=== PATIENT | male | born 1955 | race Caucasian/White ===

== ENCOUNTER 2017-03-13 10:41 | Emergency (ER) | payer SELFPAY ==
[~2017-03-13] VITALS: Ht 175.3 cm; Wt 171.0 kg
[~2017-03-13 10:41] MED LIST: ATOR40TA16 PO; GLIP10TA6 PO; LISI10TA3 PO; METF1000 PO; NOVO7030P2 SQ; syringes for insulin SQ
[2017-03-13 10:54] VITALS: BP 140/88; PULSE 96; RESP 16; TEMP 98; O2SAT 95
[2017-03-13] MEDS ORDERED: PIPERACIL-TAZO 4.5 GM PREMIX 100 ML IV STA (11:08)
[2017-03-13] MEDS ORDERED: VANCOMYCIN INJ 2,000 MG in SODIUM CHLORID 0.9% 500 ML INJ 500 ML IV STA (11:08)
[2017-03-13] MEDS ORDERED: SODIUM CHLOR 0.9% 1000 ML INJ 1,000 ML IV ONE (11:15)
--- NOTE | 2017-03-13 11:15 | PD ---
HPI Chief Complaint: Skin Problem Time Seen by Provider: 11:01 Travel History International Travel<30 days: No Contact w/Intl Traveler<30days: No Traveled to known affect area: No History of Present Illness HPI This 61-year-old male presents with complaint of infection on his left heel. He has a history of diabetes. He noted yesterday that he had drainage from his heel. He has neuropathy and does not have any sensation in this area. He is not aware of fever or chills. He says his sugar has been well controlled. PFSH Past Medical History Hx Anticoagulant Therapy: Yes (325 ASA DAILY) Arthritis: No Asthma: No Heart Rhythm Problems: No Cancer: No Cardiovascular Problems: Yes (HTN) Chemotherapy: No Chest Pain: No Congestive Heart Failure: No COPD: No Cerebrovascular Accident: No Diabetes: Yes Diminished Hearing: No Endocrine: Yes Gastrointestinal Disorders: Yes (morbid obesity AND PATIENT STATES HAS ACID REFLEX) GERD: Yes Genitourinary: Yes Headaches: No Hepatitis: No Hiatal Hernia: No Hypertension: Yes Immune Disorder: No Kidney Stones: Yes Musculoskeletal: No Neurologic: No Psychiatric: No Reproductive: No Respiratory: No Migraines: No Myocardial Infarction: No Renal Failure: No Seizures: No Ulcer: No Past Surgical History Abdominal Surgery: No Appendectomy: No Cardiac Surgery: No Cholecystectomy: No Ear Surgery: No Endocrine Surgery: No Eye Surgery: No Genitourinary Surgery: No Gynecologic Surgery: No Hysterectomy: No Oral Surgery: No Thoracic Surgery: No Other Surgery: Yes (CYST REMOVED FROM BACK) Social History Alcohol Use: Yes ("A FEW BEERS PER WEEK") Tobacco Use: No Substance Use: No Allergies-Medications (Allergen,Severity, Reaction): Coded Allergies: No Known Allergies (Verified Allergy, Unknown, 03/13/17) Reported Meds & Prescriptions Reported Meds & Active Scripts Active Glipizide 10 Mg Tab 20 Mg PO BIDAC Take 30 minutes before a meal Metformin (Metformin HCl) 1,000 Mg Tab 1,000 Mg PO BIDPC With meals [syringes for insulin] 1 Syringe SQ BID Reported Novolog Inj (Insulin Aspart) 1,000 Unit/10 Ml Vial 0 SQ DIRECTED Sliding Scale as directed. Review of Systems General / Constitutional: No: Fever, Chills Eyes: No: Diploplia, Blurred Vision HENT: No: Headaches, Vertigo Cardiovascular: No: Chest Pain or Discomfort, Palpitations Respiratory: No: Cough, Shortness of Breath Gastrointestinal: No: Nausea, Vomiting Genitourinary: No: Urgency, Frequency Musculoskeletal: No: Myalgias, Arthralgias Skin: Positive Rash Neurologic: No: Weakness, Dizziness Psychiatric: No: Anxiety Hematologic/Lymphatic: No: Easy Bruising Physical Exam Narrative GENERAL well-developed male SKIN: Focused skin assessment warm/dry. HEAD: Atraumatic. Normocephalic. EYES: Pupils equal and round. No scleral icterus. No injection or drainage. ENT: No nasal bleeding or discharge. Mucous membranes pink and moist. NECK: Trachea midline. No JVD. CARDIOVASCULAR: Regular rate and rhythm. No murmur appreciated. RESPIRATORY: No accessory muscle use. Clear to auscultation. Breath sounds equal bilaterally. GASTROINTESTINAL: Abdomen soft, non-tender, nondistended. Hepatic and splenic margins not palpable. MUSCULOSKELETAL: No obvious deformities. No clubbing. No cyanosis. No edema. Examination left heel shows that there is skin breakdown over the heel with some purulent drainage. No obvious fluctuance NEUROLOGICAL: Awake and alert. No obvious cranial nerve deficits. Motor grossly within normal limits. Normal speech. PSYCHIATRIC: Appropriate mood and affect; insight and judgment normal. Data Data Last Documented VS Vital Signs Date Time Temp Pulse Resp B/P (MAP) Pulse Ox O2 Delivery O2 Flow Rate FiO2 03/13/17 13:15 76 18 152/76 (101) 96 Room Air 03/13/17 10:54 98.0 Orders Orders Complete Blood Count With Diff (03/13/17 11:08) Comprehensive Metabolic Panel (03/13/17 11:08) Lactic Acid Sepsis Protocol (03/13/17 11:08) Urinalysis - C+S If Indicated (03/13/17 11:08) Blood Culture (03/13/17 11:08) Wound Culture And Gram Stain (03/13/17 11:08) Iv Access Insert/Monitor (03/13/17 11:08) Piperacil-Tazo 4.5 Gm Premix (Zosyn 4.5 (03/13/17 11:08) Vancomycin Inj (Vancomycin Inj) (03/13/17 11:08) Sodium Chlor 0.9% 1000 Ml Inj (Ns 1000 M (03/13/17 11:15) Foot, Heel Only (Aug6rxy) (03/13/17 11:08) Labs Laboratory Tests Test 03/13/17 11:20 White Blood Count 6.6 TH/MM3 Red Blood Count 4.78 MIL/MM3 Hemoglobin 13.4 GM/DL Hematocrit 41.4 % Mean Corpuscular Volume 86.6 FL Mean Corpuscular Hemoglobin 28.0 PG Mean Corpuscular Hemoglobin Concent 32.3 % Red Cell Distribution Width 13.3 % Platelet Count 224 TH/MM3 Mean Platelet Volume 7.6 FL Neutrophils (%) (Auto) 58.6 % Lymphocytes (%) (Auto) 29.2 % Monocytes (%) (Auto) 6.4 % Eosinophils (%) (Auto) 5.4 % Basophils (%) (Auto) 0.4 % Neutrophils # (Auto) 3.9 TH/MM3 Lymphocytes # (Auto) 1.9 TH/MM3 Monocytes # (Auto) 0.4 TH/MM3 Eosinophils # (Auto) 0.4 TH/MM3 Basophils # (Auto) 0.0 TH/MM3 CBC Comment DIFF FINAL Differential Comment Blood Urea Nitrogen 8 MG/DL Creatinine 0.60 MG/DL Random Glucose 230 MG/DL Total Protein 7.6 GM/DL Albumin 3.0 GM/DL Calcium Level 8.6 MG/DL Alkaline Phosphatase 84 U/L Aspartate Amino Transf (AST/SGOT) 10 U/L Alanine Aminotransferase (ALT/SGPT) 23 U/L Total Bilirubin 0.4 MG/DL Sodium Level 142 MEQ/L Potassium Level 3.8 MEQ/L Chloride Level 101 MEQ/L Carbon Dioxide Level 27.8 MEQ/L Anion Gap 7 MEQ/L Estimat Glomerular Filtration Rate 138 ML/MIN Lactic Acid Level 1.1 mmol/L [facility] Medical Decision Making Medical Screen Exam Complete: Yes Emergency Medical Condition: Yes Medical Record Reviewed: Yes Differential Diagnosis Differential includes cellulitis, skin infection, diabetes Narrative Course White count is normal. Lactate is normal. Patient has an infection of the heel. He has expressed a desire to go home. He has been given an initial dose of antibiotics. I will prescribe Bactrim and clindamycin to use. I recommended follow-up with podiatry Diagnosis Primary Impression: Cellulitis of heel, left Scripts Clindamycin (Clindamycin) 300 Mg Cap 300 MG PO Q6H for Infection for 10 Days, #40 CAP 0 Refills Prov: Gumaro Brenner MD 03/13/17 Sulfamethoxazole-Trimethoprim (Bactrim DS) 800-160 Mg Tab 1 TAB PO BID for Infection, #20 TAB 0 Refills Prov: Gumaro Brenner MD 03/13/17 Disposition: 01 DISCHARGE HOME Condition: Stable Gumaro Brenner MD Mar 13, 2017 11:15
[2017-03-13 11:32] LABS: AUTOMATED NEUTROPHIL # 3.9 TH/MM3 (1.8-7.7); BASOPHIL % 0.4 % (0.0-2.0); EOSINOPHIL # 0.4 TH/MM3 (0-0.4); EOSINOPHIL % 5.4 % (0.0-4.0); HEMATOCRIT 41.4 % (39.0-51.0); HEMO FLAGS DIFF FINAL; LYMPH % 29.2 % (9.0-44.0); LYMPHOCYTE # 1.9 TH/MM3 (1.0-4.8); MEAN CELL VOLUME 86.6 FL (80.0-100.0); MEAN CORPUSCULAR HGB CONC 32.3 % (32.0-36.0); MONO % 6.4 % (0.0-8.0); NEUT % 58.6 % (16.0-70.0); PLATELET COUNT 224 TH/MM3 (150-450); RED BLOOD COUNT 4.78 MIL/MM3 (4.50-5.90); RED CELL DISTRIBUTION WIDTH 13.3 % (11.6-17.2); WHITE BLOOD COUNT 6.6 TH/MM3 (4.0-11.0)
--- NOTE | 2017-03-13 11:45 | RADRPT ---
EXAM DATE/TIME: 03/13/2017 11:22 [facility] COMPARISON: No previous studies available for comparison. INDICATIONS : Open wound left heel. MEDICAL HISTORY : Diabetes mellitus type II. neuropathy SURGICAL HISTORY : None. ENCOUNTER: Initial ACUITY: 2 months PAIN SCORE: 0/10 LOCATION: Left heel FINDINGS: Two view examination of the left heel demonstrates the trabecula to be intact with no evidence of fra cture or focal bony destruction. There is a normal calcaneal angle. Moderate size plantar calcaneal spur. Vascular calcification. The soft tissues are of normal thickness. CONCLUSION: Osseous structures of the calcaneus are grossly intact. Artie Borjas MD on March 13, 2017 at 11:42 Board Certified Radiologist. This report was verified electronically.
[2017-03-13 11:53] LABS: BLOOD UREA NITROGEN 8 MG/DL (7-18); CHLORIDE 101 MEQ/L (98-107); GLOMERULAR FILTRATION RATE 138 ML/MIN (>89); POTASSIUM 3.8 MEQ/L (3.5-5.1); SODIUM (NA) 142 MEQ/L (136-145)
[2017-03-13] MEDS ORDERED: NOVOLOGP2 SQ (12:02)
[2017-03-13 12:09] VITALS: BP 160/79; PULSE 72; RESP 18; O2SAT 96
[2017-03-13 12:54] LABS: ANION GAP 7 MEQ/L (5-15); BICARBONATE 27.8 MEQ/L (21.0-32.0)
[2017-03-13 12:57] LABS: ALT (GPT) 23 U/L (12-78); AST (GOT) 10 U/L (15-37)
[2017-03-13 12:58] LABS: TOTAL BILIRUBIN ADULT 0.4 MG/DL (0.2-1.0)
[2017-03-13 13:00] LABS: ALKALINE PHOSPHATASE 84 U/L (45-117)
[2017-03-13 13:15] VITALS: BP 152/76; PULSE 76; RESP 18; O2SAT 96
[2017-03-13] MEDS ORDERED: CLIN300C5 PO (13:21)
[2017-03-13] MEDS ORDERED: BACT800T5 PO (13:21)
[2017-03-13 14:49] LABS: BLOOD, URINE TRACE (NEG); GLUCOSE,URINE NEG (NEG); KETONE, URINE NEG (NEG); NITRITE,URINE NEG (NEG); PH, URINE 5.5 (5.0-8.5)
[2017-03-13 14:53] LABS: URINE COLOR YELLOW (YELLW/STRAW)
[2017-03-13 14:54] LABS: SQUAMOUS EPITHELIAL CELL URINE 0-5 /hpf (0-5); WBC, URINE 0-2 /hpf (0-5)
[2017-03-13 14:55] LABS: COMMENT (UR) CATH-CULT NOT IND; CULTURE IF INDICATED CATH CULTURE NOT IND
[2017-03-13 14:59] VITALS: BP 156/72
== END 2017-03-13 15:01 | disposition home or self-care (01) ==
LOC: PHED 10:41
DX: L03.116 Cellulitis of left lower limb (principal); B95.61 Methicillin susceptible Staphylococcus aureus infection as the cause of diseases classified elsewhere; B95.4 Other streptococcus as the cause of diseases classified elsewhere; B96.89 Other specified bacterial agents as the cause of diseases classified elsewhere; E11.40 Type 2 diabetes mellitus with diabetic neuropathy, unspecified; Z79.4 Long term (current) use of insulin
CPT/HCPCS: 73650; 80053; 81001; 83605; 85025; 86403; 87040; 87070; 87185; 87186; 96365; 96366; 96367; 99284; J2543; J3370; J7030; J7040

== ENCOUNTER 2017-11-01 18:13 | Emergency (ER) | payer SELFPAY ==
[~2017-11-01] VITALS: Ht 175.3 cm; Wt 174.0 kg
[~2017-11-01 18:13] MED LIST changes: -ATOR40TA16 PO; +BACT800T5 PO; +CLIN300C5 PO; -LISI10TA3 PO; -NOVO7030P2 SQ; +NOVOLOGP2 SQ
[2017-11-01 18:16] VITALS: BP 128/77; PULSE 85; RESP 16; TEMP 97.5; O2SAT 96
[2017-11-01] MEDS ORDERED: NOVO7030P2 SQ (18:32)
[2017-11-01] MEDS ORDERED: LISI10TA3 PO (18:32)
[2017-11-01] MEDS ORDERED: SULFAMETHOXAZOLE-TRIMETHOPRIM DS 800-160 MG TAB PO ONE (18:45)
--- NOTE | 2017-11-01 18:52 | PD ---
HPI Chief Complaint: Skin Problem Time Seen by Provider: 18:27 Travel History International Travel<30 days: No Contact w/Intl Traveler<30days: No Traveled to known affect area: No History of Present Illness HPI 62yo M with PMH of DM, peripheral neuropathy presents with multiple nonhealing ulcers in left leg. Pt said he has some oozing on the ulcer that has been there for a month. The redness around actually seems better. Denies any trauma , fever, chest pain, sob, n/v, abdominal pain, focal weakness or numbness. PFSH Past Medical History Hx Anticoagulant Therapy: Yes (325 ASA DAILY) Arthritis: No Asthma: No Heart Rhythm Problems: No Cancer: No Cardiovascular Problems: Yes (HTN) Chemotherapy: No Chest Pain: No Congestive Heart Failure: No COPD: No Cerebrovascular Accident: No Diabetes: Yes (Type 1) Patient Takes Glucophage: No Diminished Hearing: No Gastrointestinal Disorders: Yes (morbid obesity AND PATIENT STATES HAS ACID REFLEX) GERD: Yes Genitourinary: Yes Headaches: No Hepatitis: No Hiatal Hernia: No Hypertension: Yes Immune Disorder: No Kidney Stones: Yes Musculoskeletal: Yes (CHRONIC NECK PAIN) Neurologic: No Psychiatric: No Reproductive: No Respiratory: No Migraines: No Myocardial Infarction: No Renal Failure: No Seizures: No Ulcer: No Influenza Vaccination: No Past Surgical History Abdominal Surgery: No Appendectomy: No Cardiac Surgery: No Cholecystectomy: Yes Ear Surgery: No Endocrine Surgery: No Eye Surgery: No Genitourinary Surgery: No Gynecologic Surgery: No Hysterectomy: No Oral Surgery: No Thoracic Surgery: No Other Surgery: Yes (CYST REMOVED FROM BACK) Social History Alcohol Use: Yes ("QUIT") Tobacco Use: No Substance Use: No Allergies-Medications (Allergen,Severity, Reaction): Coded Allergies: No Known Allergies (Verified Allergy, Unknown, 11/01/17) Reported Meds & Prescriptions Reported Meds & Active Scripts Active Clindamycin (Clindamycin HCl) 150 Mg Cap 300 Mg PO Q6H 7 Days Reported Lisinopril 10 Mg Tab 10 Mg PO DAILY Novolin 70-30 Inj (Insulin Human Isoph/Insulin Regular) 1,000 Unit/10 Ml Vial 25 Units SQ BID Review of Systems Except as stated in HPI: all other systems reviewed are Neg Physical Exam Narrative GENERAL: 62yo M not in distress. SKIN: Focused skin assessment warm/dry. HEAD: Atraumatic. Normocephalic. EYES: Pupils equal and round. No scleral icterus. No injection or drainage. ENT: No nasal bleeding or discharge. Mucous membranes pink and moist. NECK: Trachea midline. No JVD. CARDIOVASCULAR: Regular rate and rhythm. No murmur appreciated. RESPIRATORY: No accessory muscle use. Clear to auscultation. Breath sounds equal bilaterally. GASTROINTESTINAL: Abdomen soft, non-tender, nondistended. MUSCULOSKELETAL: LLE: DP 2+. Multiple nonhealing ulcers that has been there from 1 month to 1 year. 3 x1 cm and 4 x3 cm tibia. 4x3cm medial dorsum of left foot. No active drainage. 7x3cm dry ulcer in left heel. Pt has peripheral neuropathy and does not really feel her left leg. NEUROLOGICAL: Awake and alert. No obvious cranial nerve deficits. Motor grossly within normal limits. Normal speech. PSYCHIATRIC: Appropriate mood and affect; insight and judgment normal. Data Data Last Documented VS Vital Signs Date Time Temp Pulse Resp B/P (MAP) Pulse Ox O2 Delivery O2 Flow Rate FiO2 11/01/17 18:16 97.5 85 16 128/77 (94) 96 Orders Orders Basic Metabolic Panel (Bmp) (11/01/17 18:43) Complete Blood Count With Diff (11/01/17 18:43) Sulfamet-Trimeth Ds 800-160 Mg (Bactrim (11/01/17 18:45) Ed Discharge Order (11/01/17 20:11) Labs Laboratory Tests Test 11/01/17 19:20 White Blood Count 10.5 TH/MM3 Red Blood Count 4.58 MIL/MM3 Hemoglobin 13.2 GM/DL Hematocrit 39.4 % Mean Corpuscular Volume 86.0 FL Mean Corpuscular Hemoglobin 28.8 PG Mean Corpuscular Hemoglobin Concent 33.5 % Red Cell Distribution Width 13.1 % Platelet Count 242 TH/MM3 Mean Platelet Volume 8.1 FL Neutrophils (%) (Auto) 64.4 % Lymphocytes (%) (Auto) 27.2 % Monocytes (%) (Auto) 5.6 % Eosinophils (%) (Auto) 2.4 % Basophils (%) (Auto) 0.4 % Neutrophils # (Auto) 6.8 TH/MM3 Lymphocytes # (Auto) 2.8 TH/MM3 Monocytes # (Auto) 0.6 TH/MM3 Eosinophils # (Auto) 0.3 TH/MM3 Basophils # (Auto) 0.0 TH/MM3 CBC Comment DIFF FINAL Differential Comment Blood Urea Nitrogen 22 MG/DL Creatinine 0.96 MG/DL Random Glucose 261 MG/DL Calcium Level 8.7 MG/DL Sodium Level 139 MEQ/L Potassium Level 4.1 MEQ/L Chloride Level 105 MEQ/L Carbon Dioxide Level 27.0 MEQ/L Anion Gap 7 MEQ/L Estimat Glomerular Filtration Rate 80 ML/MIN MDM Medical Decision Making Medical Screen Exam Complete: Yes Emergency Medical Condition: Yes Differential Diagnosis Nonhealing ulcers vs. uncontrolled DM Narrative Course 62yo M with DM and peripheral neuropathy here with nonhealing ulcer in left leg. Pt is nontoxic appearing. No systemic symptoms but pt is insistent on getting antibiotics. Pt does have erythema around the ulcers but it is not new. It is slightly warm to touch so will give bactrim. Labs reviewed, no leukocytosis. H/H normal. BUN mildly elevated at 22. Glucose elevated at 261. CO2 normal. Normal anion gap. Will refer pt to podiatry. Wound looks chronic and pt will need chronic wound care. Return precautions given. Diagnosis Primary Impression: Ulcer Referrals: Joy Carrillo DPM call for appointment Patient Instructions: General Instructions Departure Forms: Tests/Procedures Additional Instructions: Please follow up with podiatry as outpatient. Please return to the ED if symptoms worsen. Med/Other Pt SpecificInfo: Prescription(s) given Scripts Clindamycin (Clindamycin) 150 Mg Cap 300 MG PO Q6H for Infection for 7 Days, #56 CAP 0 Refills Prov: Ghada Haddad DO 11/01/17 Disposition: 01 DISCHARGE HOME Condition: Stable Ghada Haddad DO Nov 01, 2017 18:52
[2017-11-01 19:28] LABS: AUTOMATED NEUTROPHIL # 6.8 TH/MM3 (1.8-7.7); BASOPHIL % 0.4 % (0.0-2.0); EOSINOPHIL # 0.3 TH/MM3 (0-0.4); EOSINOPHIL % 2.4 % (0.0-4.0); HEMATOCRIT 39.4 % (39.0-51.0); HEMOGLOBIN 13.2 GM/DL (13.0-17.0); LYMPH % 27.2 % (9.0-44.0); LYMPHOCYTE # 2.8 TH/MM3 (1.0-4.8); MEAN CORPUSCULAR HEMOGLOBIN 28.8 PG (27.0-34.0); MEAN CORPUSCULAR HGB CONC 33.5 % (32.0-36.0); MEAN PLATELET VOLUME 8.1 FL (7.0-11.0); MONO % 5.6 % (0.0-8.0); MONOCYTE # 0.6 TH/MM3 (0-0.9); NEUT % 64.4 % (16.0-70.0); PLATELET COUNT 242 TH/MM3 (150-450); RED BLOOD COUNT 4.58 MIL/MM3 (4.50-5.90); RED CELL DISTRIBUTION WIDTH 13.1 % (11.6-17.2); WHITE BLOOD COUNT 10.5 TH/MM3 (4.0-11.0)
[2017-11-01 19:41] LABS: CALCIUM 8.7 MG/DL (8.5-10.1)
[2017-11-01 19:45] LABS: CREATININE 0.96 MG/DL (0.60-1.30)
[2017-11-01] MEDS ORDERED: CLIN150C14 PO (20:11)
[2017-11-01 20:31] VITALS: BP 138/72
== END 2017-11-01 20:34 | disposition home or self-care (01) ==
LOC: PHED 18:13
DX: L97.829 Non-pressure chronic ulcer of other part of left lower leg with unspecified severity (principal); L97.529 Non-pressure chronic ulcer of other part of left foot with unspecified severity; L97.429 Non-pressure chronic ulcer of left heel and midfoot with unspecified severity; E10.9 Type 1 diabetes mellitus without complications; G62.9 Polyneuropathy, unspecified; I10 Essential (primary) hypertension; K21.9 Gastro-esophageal reflux disease without esophagitis; E66.01 Morbid (severe) obesity due to excess calories; Z79.4 Long term (current) use of insulin; Z87.19 Personal history of other diseases of the digestive system; Z87.39 Personal history of other diseases of the musculoskeletal system and connective tissue
CPT/HCPCS: 80048; 85025; 99283